=== PATIENT | male | born 1995 | race African-American/Black ===

== ENCOUNTER 2017-03-20 22:35 | Emergency (ER) | payer OTHER ==
[~2017-03-20] VITALS: Ht 180.3 cm; Wt 132.0 kg
[~2017-03-20 22:35] MED LIST: NAPR550T PO; ORPH100T PO
--- NOTE | 2017-03-20 22:53 | PHYS DOC ---
Past Medical History Past Medical History: No Pertinent History Past Surgical History: Other Additional Past Surgical Histo: left leg Alcohol Use: None Drug Use: None Adult General Chief Complaint Chief Complaint: CHEST PAIN [facility] HPI Patient is a 21 year old -[place] male with no medical problems who presents with chest pain that began after coughing episode while getting out of the pool. Patient has had intermittent chest pain lasting a few seconds in nature central chest above the xiphoid after coughing. He denies any shortness of breath, denies any fever, chills, URI symptoms, runny nose, change in voice, reflux symptoms, or trauma. Patient denies a prior had symptoms of the same. Patient denies any travel outside the country PERC Criteria Assessment: Age > 50: No HR > 100: No 02 < 95%: No H/o DVT/PE: No Recent trauma/surgery: No Hemoptysis No Exogenous Estrogen: No Unilateral Leg swelling: No Pretest probability > 15%: No Less than 2% risk of PE. No further work up is necessary Patient is a less than 2% risk for PE patient's EKG demonstrated tachycardia 103 on my exam is 92. Differential diagnosis for chest pain: Pericarditis, myocarditis, endocarditis, pneumothorax, pneumonia, aortic dissection, esophageal spasm, esophagitis, peptic ulcer disease, acute coronary syndrome, mediastinitis, Boerhaave syndrome , musculoskeletal chest wall pain, costochondritis, intercostal strain, rib fracture, pulmonary contusion, pneumonitis, pleural effusion, pericardial effusion, pericardial tamponode, and pleurisy. Workup consists of EKG chest x-ray and risk stratification Review of Systems Review of Systems Constitutional: Denies fever or chills [] Eyes: Denies change in visual acuity, redness, or eye pain [] HENT: Denies nasal congestion or sore throat [] Respiratory: His complaint of nonproductive cough Cardiovascular: No additional information not addressed in HPI [] GI: Denies abdominal pain, nausea, vomiting, bloody stools or diarrhea [] : Denies dysuria or hematuria [] Musculoskeletal: Denies back pain or joint pain [] Integument: Denies rash or skin lesions [] Neurologic: Denies headache, focal weakness or sensory changes [] Endocrine: Denies polyuria or polydipsia [] Allergies Allergies Allergies Coded Allergies Type Severity Reaction Last Updated Verified No Known Drug Allergies 02/24/15 No Physical Exam Physical Exam Constitutional: Well developed, well nourished, no acute distress, non-toxic appearance. [] HENT: Normocephalic, atraumatic, bilateral external ears normal, oropharynx moist, no oral exudates, nose normal. [] Eyes: PERRLA, EOMI, conjunctiva normal, no discharge. [] Neck: Normal range of motion, no tenderness, supple, no stridor. [] Cardiovascular:Heart rate regular rhythm, no murmur [] Lungs & Thorax: Bilateral breath sounds clear to auscultation chest wall tenderness to palpation is reproducible symptoms over the xiphoid process. Abdomen: Bowel sounds normal, soft, no tenderness, no masses, no pulsatile masses. [] Skin: Warm, dry, no erythema, no rash. [] Back: No tenderness, no CVA tenderness. [] Extremities: No tenderness, no cyanosis, no clubbing, ROM intact, no edema. [] Neurologic: Alert and oriented X 3, normal motor function, normal sensory function, no focal deficits noted. [] Psychologic: Affect normal, judgement normal, mood normal. [] Current Patient Data Vital Signs Vital Signs Date Time Temp Pulse Resp B/P (MAP) Pulse Ox O2 Delivery O2 Flow Rate FiO2 03/20/17 22:52 98.8 97 28 166/79 (108) 95 Room Air 98.8 EKG EKG [] EKG timed 224103/20/2017 heart rate 103 sinus tachycardia normal P wave to be QRS QRS width is normal 84 when necessary was normal at 144 QTC is normal at 382. Dr. Villalta read EKG Radiology/Procedures Radiology/Procedures [] Chest x-ray 2 view time 94711/24/[address] Miramontes cardia megaly, no acute infiltrate, no hyperinflation, no pleural effusion no hyperinflation Course & Med Decision Making Course & Med Decision Making Pertinent Labs and Imaging studies reviewed. (See chart for details) Patient presents with sharp chest pain began after coughing short-lived chest pain central chest reproducible on physical exam. EKG is unremarkable tachycardic on EKG but on my physical exam 2 less than 100. At this point in time I believe patient suffered muscular skeletal chest wall pain from cough. There is no evidence of pneumonia, pneumonitis, mediastinitis, pneumothorax, pleural effusion, cardiomegaly or pericarditis. Patient be given anti- inflammatories Tylenol and asked to follow-up with his primary care doctor. PERC Criteria Assessment: Age > 50: No HR > 100: No 02 < 95%: No H/o DVT/PE: No Recent trauma/surgery: No Hemoptysis No Exogenous Estrogen: No Unilateral Leg swelling: No Pretest probability > 15%: No Less than 2% risk of PE. No further work up is necessary has not please risk for pulmonary most. History: Impression: Chest pain of unclear etiology, cough Disposition: Discharged home PCP follow-up his chest. Patient to follow up with cardiology as an outpatient next 2 weeks. Dragon Disclaimer Dragon Disclaimer This electronic medical record was generated, in whole or in part, using a voice recognition dictation system. Departure Departure Impression: Primary Impression: Chest pain Additional Impression: Cough Disposition: 01 HOME, SELF-CARE Condition: IMPROVED Referrals: JEN DOMINGUEZ (PCP) Patient Instructions: Chest Pain (Nonspecific), Chest Wall Pain, Cough, Adult Additional Instructions: He is return for any new or increasing symptoms or feel any questions or concerns. Please return for fever greater than 102.2 despite treatment or if you have any worsening symptoms or shortness of breath despite treatment. I would advise that he quit smoking as it may help prevent her symptoms occurring in the future but also advise he follow up with your primary care doctor for cardiology chest pain continues. Scripts Naproxen (NAPROSYN) 500 Mg Tablet 1 TAB PO BID, #14 TAB 1 Refill Prov: LEOLA VILALLTA MD 03/20/17 Guaifenesin/Dextromethorphan (MUCINEX DM ER 600-30 MG TABLET) 1 Each Tab.er.12h 1 TAB PO PRN Q12HRS, #20 TAB Prov: LEOLA VILLALTA MD 03/20/17 Problem Qualifiers LEOLA VILLALTA MD Mar 20, 2017 22:53
[2017-03-20] MEDS ORDERED: NAPR500T PO (23:26)
[2017-03-20] MEDS ORDERED: GUAI-42 PO (23:26)
[2017-03-20] MEDS ORDERED: KETOROLAC TROMETHAMINE 60 MG/2 ML INJ. IM ONE (23:30)
[2017-03-20 23:53] VITALS: BP 156/70
--- NOTE | 2017-03-21 07:44 | RAD ---
Indication: Cough and chest pain. Time of exam 2307 hours. FINDINGS: The heart size is normal. The lungs are clear. No pleural effusion or pneumothorax is identified. The pulmonary vascularity is normal. IMPRESSION: No acute abnormality detected.
--- NOTE | 2017-03-21 12:32 | EKG ---
[facility] [address] [place] [address] Test Date: 2017-03-20 Test Time: 22:42:35 Pat Name: SACHA GARCIA Department: Room: Gender: M [employer]: : 1995 Requested By: LEOLA VILLALTA Order Number: [id number] Reading MD: Jevon Chinchilla Measurements Intervals [place] Rate: 103 P: 46 DE: 144 QRS: 56 QRSD: 84 T: 22 QT: 290 QTc: 382 Interpretive Statements SINUS TACHYCARDIA NONSPECIFIC ST-T WAVE CHANGES. OTHERWISE NORMAL ECG RI6.01 Unconfirmed report No previous ECG available for comparison Electronically Signed On 03-25-2017 9:35:42 CDT by Jevon Chinchilla
== END 2017-03-20 23:54 | disposition home or self-care (01) ==
LOC: ER 22:35
DX: R07.89 Other chest pain (principal); R05 Cough; R00.0 Tachycardia, unspecified
CPT/HCPCS: 71020; 93005; 96372; 99284; J1885